=== PATIENT | female | born 1945 | race Caucasian/White ===

== ENCOUNTER → 2017-03-21 | Outpatient (CLI) | payer MEDICARE ==
[~2017-03-21] MED LIST: ASPIRIN EC81 MG PO; CRANBERRY200 MG PO; LEVOTHYROXINE75 MCG PO; LIPITOR10 MG PO; NEURONTIN300 MG PO; NORVASC10 MG PO; OCUVITE EYE +1 EACH PO; TOPROL XL25 MG PO; ULTRAM50 MG PO; ZESTRIL5 MG PO
== END | disposition disaster alternative care site (69) ==
LOC: GRAD 09:43
DX: C82.03 Follicular lymphoma grade I, intra-abdominal lymph nodes (principal); R59.0 Localized enlarged lymph nodes

== ENCOUNTER → 2017-06-25 | Outpatient (CLI) | payer MEDICARE | END | disposition disaster alternative care site (69) | LOC: GRAD 11:18 | DX: C82.03 Follicular lymphoma grade I, intra-abdominal lymph nodes (principal); Q61.02 Congenital multiple renal cysts; K57.90 Diverticulosis of intestine, part unspecified, without perforation or abscess without bleeding; R59.0 Localized enlarged lymph nodes ==

== ENCOUNTER → 2017-07-17 | Outpatient (CLI) | payer MEDICARE | LOC: LGSMG 12:49 | DX: N03.2 Chronic nephritic syndrome with diffuse membranous glomerulonephritis (principal); R80.9 Proteinuria, unspecified ==